=== PATIENT | female | born 1995 | race African-American/Black ===

== ENCOUNTER → 2023-04-15 | Outpatient (CLI) | payer OTHER | LOC: M WHC 12:23 | PROVIDERS: ATTEND Family Medicine | DX: N64.4 Mastodynia (principal) ==

== ENCOUNTER 2023-05-30 16:34 | Emergency (ER) | payer OTHER ==
[~2023-05-30] VITALS: Ht 157.5 cm; Wt 61.5 kg
[2023-05-30] MEDS ORDERED: PREN1MIS PO (16:42)
[2023-05-30 17:26] LABS: BASO % 0.6 % (0.0-1.0); EOS # 0.1 10^3/uL (0.0-0.5); EOS % 1.2 % (0.0-3.0); HEMATOCRIT 36.4 % (36.0-47.0); HEMOGLOBIN 11.5 g/dl (12.0-15.5); LYMPH # 1.8 10^3/uL (1.5-5.0); LYMPH % 37.5 % (24.0-44.0); MEAN CORPUSCULAR HEMOGLOBIN 29.3 pg (27.0-33.0); MEAN CORPUSCULAR HGB CONC 31.6 g/dl (32.0-36.5); MEAN CORPUSCULAR VOLUME 92.9 fl (80.0-96.0); MONO # 0.4 10^3/uL (0.0-0.8); MONO % 7.4 % (2.0-8.0); NEUTROPHILS # 2.6 10^3/uL (1.5-8.5); NEUTROPHILS % 53.1 % (36.0-66.0); PLATELET COUNT, AUTOMATED 277 10^3/uL (150-450); RED BLOOD COUNT 3.92 10^6/uL (4.00-5.40); WHITE BLOOD COUNT 4.9 10^3/uL (4.0-10.0)
[2023-05-30 17:50] LABS: BLOOD UREA NITROGEN 15 MG/DL (9-23); CALCIUM LEVEL 9.2 MG/DL (8.5-10.1); CARBON DIOXIDE LEVEL 26 MMOL/L (20-31); CHLORIDE LEVEL 105 MMOL/L (98-107); CREATININE FOR GFR 0.71 MG/DL (0.55-1.30); GLOMERULAR FILTRATION RATE > 60.0 (>60); GLUCOSE, FASTING 68 MG/DL (60-100); POTASSIUM SERUM 3.1 MMOL/L (3.5-5.1); SODIUM LEVEL 141 MMOL/L (136-145)
[2023-05-30 18:06] LABS: HCG, SERUM QUANTITATIVE 987.1 MIU/ML (<4.2)
[2023-05-30] MEDS ORDERED: NS 1,000 ML IV ONE (18:40)
[2023-05-30] MEDS ORDERED: KCL 10MEQ/100ML SWI (KRUN) 10 MEQ in IV 1 EA IV ONE (18:45)
[2023-05-30 19:01] LABS: MAGNESIUM LEVEL 1.8 MG/DL (1.8-2.4)
[2023-05-30 21:15] LABS: GC DNA AMPLIFICATION NEGATIVE (NEGATIVE)
[2023-05-30] MEDS ORDERED: OXYCODONE/APAP 5MG/325MG(HOME DOSE PACK) PO ONE (21:40)
[2023-05-30 22:08] VITALS: BP 130/95; TEMP 98.6; O2SAT 100
== END 2023-05-30 22:11 | disposition home or self-care (01) ==
LOC: M ED 16:34
DX: R89.1 Abnormal level of hormones in specimens from other organs, systems and tissues (principal); Z79.810 Long term (current) use of selective estrogen receptor modulators (SERMs)

== ENCOUNTER → 2023-06-03 | Outpatient (CLI) | payer OTHER ==
[~2023-06-03] MED LIST: PREN1MIS PO
[2023-06-03 16:38] LABS: HCG, SERUM QUALITATIVE POSITIVE (NEGATIVE)
== END ==
LOC: M LAB 15:28
DX: R79.89 Other specified abnormal findings of blood chemistry (principal)

== ENCOUNTER → 2023-07-01 | Outpatient (CLI) | payer OTHER | LOC: M LAB 15:22 | PROVIDERS: ATTEND Obstetrics & Gynecology | DX: O03.9 Complete or unspecified spontaneous abortion without complication (principal) ==

== ENCOUNTER → 2023-08-28 | Outpatient (REF) | payer OTHER ==
[2023-08-28 15:40] LABS: GC DNA AMPLIFICATION NEGATIVE (NEGATIVE)
== END ==
LOC: M LAB REF 12:00
PROVIDERS: ATTEND Nurse Practitioner Family
DX: R30.0 Dysuria (principal); N89.8 Other specified noninflammatory disorders of vagina

== ENCOUNTER 2024-04-23 10:11 | Emergency (ER) | payer OTHER ==
[~2024-04-23] VITALS: Ht 154.9 cm; Wt 58.9 kg
[2024-04-23] MEDS ORDERED: MELO15TA28 PO (11:39)
[2024-04-23 12:09] VITALS: BP 115/75; TEMP 97.8; O2SAT 99
== END 2024-04-23 12:00 | disposition home or self-care (01) ==
LOC: M ED 10:11
DX: M65.241 Calcific tendinitis, right hand (principal); F41.9 Anxiety disorder, unspecified; Z86.79 Personal history of other diseases of the circulatory system; Z79.899 Other long term (current) drug therapy

== ENCOUNTER → 2024-11-19 | Outpatient (REF) ==
[~2024-11-19] MED LIST changes: +MELO15TA28 PO
[2024-11-22 16:02] LABS: HERPES ZOSTER, VARICELLA IgG < 1.00 S/CO (>=1.00)
== END ==
LOC: M LAB 12:46
PROVIDERS: ATTEND Family Medicine

== ENCOUNTER → 2025-06-16 | Outpatient (CLI) | payer MEDICAID ==
[2025-06-16 15:42] LABS: PLATELET COUNT, AUTOMATED 281 10^3/uL (150-450)
[2025-06-16 16:12] LABS: Trichomonas vaginalis (AMP) NOT DETECTED (NEGATIVE)
[2025-06-16 16:24] LABS: HIV 1&2 SCREEN NEGATIVE (NEGATIVE)
[2025-06-16 16:32] LABS: HEPATITIS C VIRUS ABY INDEX < 0.02 INDEX (<0.8)
[2025-06-16 16:35] LABS: GC DNA AMPLIFICATION NEGATIVE (NEGATIVE)
[2025-06-21 01:42] LABS: HEMOGLOBINOPATHY EVAL HCT 34.6 % (35.0-45.0); HEMOGLOBINOPATHY EVAL HGB 10.1 g/dL (11.7-15.5); HEMOGLOBINOPATHY EVAL HGB A 97.4 % (>96.0); HEMOGLOBINOPATHY EVAL HGB A2 2.6 % (2.0-3.2); HEMOGLOBINOPATHY EVAL HGB F 0.0 % (<2.0); HEMOGLOBINOPATHY EVAL MCH 26.7 pg (27.0-33.0); HEMOGLOBINOPATHY EVAL MCV 91.5 fL (80.0-100.0); HEMOGLOBINOPATHY EVAL RBC 3.78 Mill/uL (3.80-5.10); HEMOGLOBINOPATHY EVAL RDW 15.2 % (11.0-15.0)
== END ==
LOC: M PLALAB 14:03
PROVIDERS: ATTEND Obstetrics & Gynecology
DX: Z34.80 Encounter for supervision of other normal pregnancy, unspecified trimester (principal)

== ENCOUNTER → 2025-08-12 | Outpatient (CLI) | payer MEDICAID, SELFPAY | LOC: M WHC 09:07 | PROVIDERS: ATTEND Obstetrics & Gynecology | DX: Z34.80 Encounter for supervision of other normal pregnancy, unspecified trimester (principal); Z36.89 Encounter for other specified antenatal screening; Z3A.22 22 weeks gestation of pregnancy ==

== ENCOUNTER → 2025-09-05 | Outpatient (CLI) | payer MEDICAID | LOC: M WHC 10:49 | PROVIDERS: ATTEND Student in an Organized Health Care Education/Training Program | DX: Z34.82 Encounter for supervision of other normal pregnancy, second trimester (principal); Z3A.25 25 weeks gestation of pregnancy ==

== ENCOUNTER → 2025-09-19 | Outpatient (CLI) | payer MEDICAID, OTHER ==
[2025-09-19 17:49] LABS: PLATELET COUNT, AUTOMATED 285 10^3/uL (150-450)
[2025-09-19 17:53] LABS: GLUCOSE CHALLENGE TEST 1 HOUR 88 MG/DL (LESS THAN 140)
[2025-09-19 18:28] LABS: HIV 1&2 SCREEN NEGATIVE (NEGATIVE)
[2025-09-19 18:35] LABS: HEPATITIS C VIRUS ABY INDEX < 0.02 INDEX (<0.8)
[2025-09-19 19:22] LABS: Trichomonas vaginalis (AMP) NOT DETECTED (NEGATIVE)
[2025-09-19 19:46] LABS: GC DNA AMPLIFICATION NEGATIVE (NEGATIVE)
== END ==
LOC: M PLALAB 14:59
PROVIDERS: ATTEND Student in an Organized Health Care Education/Training Program
DX: Z34.80 Encounter for supervision of other normal pregnancy, unspecified trimester (principal)